=== PATIENT | female | born 1935 | race Caucasian/White ===

== ENCOUNTER 2023-06-03 12:17 | Emergency (ER) | payer MEDICARE, OTHER, SELFPAY ==
[2023-06-03 12:28] VITALS: BP 138/72; PULSE 75; TEMP 36.6; O2SAT 95; BMI 30.9
--- NOTE | 2023-06-03 12:31 | CRLHL7_ITS ---
For Patients: As a result of the Century Cures Act, medical imaging exams and procedure reports are released immediately into your electronic medical record. You may view this report before your referring provider. If you have questions, please contact your health care provider. Indication: Fall Technique: Noncontrast head CT Comparison: No comparison Findings: Generalized parenchymal volume loss. There is no acute intracranial hemorrhage or mass along the anterior falx. There are small partially calcified extra-axial mass measuring up to 8 millimeters on the left. Right frontal and periorbital scalp hematoma. Skull and scalp otherwise unremarkable. Impression: 1. No acute intracranial hemorrhage or mass. 2. Small extra-axial partially calcified 8 millimeter mass along the left falx this is favored to represent a small calcified meningioma. Please note that all CT scans at this facility use dose modulation, iterative reconstruction, and/or weight-based dosing when appropriate to reduce radiation dose to as low as reasonably achievable. Dictated by Vika Dupree MD @ 06/03/2023 2:28:27 PM (Electronically Signed)
--- NOTE | 2023-06-03 12:31 | CRLHL7_ITS ---
For Patients: As a result of the Century Cures Act, medical imaging exams and procedure reports are released immediately into your electronic medical record. You may view this report before your referring provider. If you have questions, please contact your health care provider. Indication: Pain after fall. Pain at the base of the hand on the ulnar side. 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 Remainder of joint spaces are preserved. Irregularity of distal radius may be sequela of old trauma. There is old ulnar styloid fracture. At that ulnar aspect of the base of the hand, an arrow is noted denoting this as the site of pain. There is no fracture identified at that site. Impression: 1. No acute fracture or dislocation. 2. Old distal radial and ulnar styloid fractures. 3. 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 Dictated by Rio Lopez MD @ 06/03/2023 3:01:31 PM (Electronically Signed)
--- NOTE | 2023-06-03 14:16 | ED.GENADULT ---
HPI - General Adult General Date Seen: 06/03/23 Chief complaint: Laceration/Wound Stated complaint: face laceration Time Seen by Provider: 06/03/23 12:19 Source: patient and family Mode of arrival: ambulatory Limitations: no limitations History of Present Illness HPI narrative: Patient is an 87 year old woman here with her daughter for evaluation after a fall. She tripped on an uneven portion of sidewalk and fell, hitting the right side of her face on the ground. She also caught herself partially with her right hand and has some pain in the palm of her hand on the ulnar aspect. There was no loss of consciousness. She denies significant headache. She has a large goose egg over her eyebrow and a laceration over her cheek. She denies any dental trauma or neck pain. She has been ambulatory since, denies any lower extremity pain. No back pain, chest pain abdominal pain or other complaints. She does not take any anticoagulation. Related Data Home Medications Medication Instructions Recorded Confirmed losartan 100 mg tablet 100 mg PO DAILY 06/03/23 06/03/23 Allergies Allergy/AdvReac Type Severity Reaction Status Date / Time codeine Allergy Verified 06/03/23 12:25 Review of Systems Status of ROS: Reports: 6 or more systems reviewed and unremarkable except as noted in History and below [facility] Social History Smoking Status: Never smoker Do you use any of these nicotine containing products: None How often do you have a drink containing alcohol: never AUDIT-C Alcohol total score: 0 Non-prescribed substance use: denies use Exam Narrative: Exam Narrative: Vital signs as noted above. In general, an alert, nontoxic elderly woman. She is alert, conversant. Head: Normocephalic. Large hematoma forming over the right eyebrow. She has a superficial but gaping laceration that is a little over 1 cm over the right cheek. Eyes: Pupils are equal reactive. Extraocular movements are full. Conjunctivae are normal. ENT: Mucous membranes are moist. Laceration is noted above. No bony deformity or tenderness, multiple abrasions noted over the cheek, upper lip, chin. Neck: Supple without lymphadenopathy. Nontender to palpation. Heart: Regular rate and rhythm. No murmur or rub. Lungs: Clear bilaterally. No increased work of breathing, crackles or wheezes. Abdomen: Soft and nontender. No organomegaly. Extremities: Well perfused. No edema. No calf tenderness. Pulses intact. Neurologic: Patient is alert and oriented to person and place. Speech is fluent. Face is symmetric. Moves all extremities equally. Affect: Normal. Skin: Warm and dry. Well perfused. Const: Vital Signs, click to edit/add: Vital Signs - 24 hr 06/03/23 12:28 Temperature 97.8 F Pulse Rate [Pulse Oximeter] 75 Blood Pressure [Ri ght Upper Arm] 138/72 Pulse Oximetry 95 Oxygen Delivery Me thod Room Air Documenting provider has reviewed patient's vital signs: yes Course Course Hospital Course: For the laceration, I recommended that we repair this with sutures. I ordered a CT scan of her head given her age as well as x-rays of the right hand. By my review both of these are negative, formal radiology read are pending at this time. Procedure note: Wound was anesthetized using lidocaine with epinephrine, cleaned and explored, no evidence of foreign body or injury to deeper structures. I closed the wound using 6 0 nylon, a total of 3 superficial simple interrupted sutures were placed. She tolerated this well without immediate complication. Head CT is read as negative by Radiology for acute findings. She has a small likely calcified meningioma. Hand x-ray likewise read as negative for acute findings, severe osteoarthritis. Tetanus was updated. She is eager to go home. Routine wound care, advised use of an ointment on abrasions and laceration, suture removal in 5 to 7 days at her regular clinic, return sooner for signs of infection or severe head injury such as severe headache or vomiting. Vital Signs Vital signs: Initial Vital Signs Temperature 97.8 F 06/03/23 12:28 Temperature Source Temporal Artery Scan 06/03/23 12:28 Pulse Rate 75 06/03/23 12:28 Pulse Rhythm Regular 06/03/23 12:28 Blood Pressure 138/72 06/03/23 12:28 Blood Pressure Mean 94 06/03/23 12:28 Blood Pressure Position Supine 06/03/23 12:28 Pulse Oximetry 95 06/03/23 12:28 Oxygen Delivery Method Room Air 06/03/23 12:28 Vital Signs Temperature 97.8 F 06/03/23 12:28 Pulse Rate 75 06/03/23 12:28 Blood Pressure 138/72 06/03/23 12:28 Pulse Oximetry 95 06/03/23 12:28 Oxygen Delivery Method Room Air 06/03/23 12:28 Temperature 97.8 F 06/03/23 12:28 Pulse Rate 75 06/03/23 12:28 Blood Pressure 138/72 06/03/23 12:28 Pulse Oximetry 95 06/03/23 12:28 Oxygen Delivery Method Room Air 06/03/23 12:28 Discharge Plan Discharge Clinical Impression: Hematoma, Contusion, Facial laceration Patient Disposition: Home w/ Parent or Adult Condition: Improved Instructions: Laceration (DC) Additional Instructions: Routine wound care. Suture removal in your clinic in 5-7 days. Return for signs of infection. Keep an ointment such as Vaseline on the laceration as well as the scrapes on your face, this will help with healing. The bruising above your eyebrow will track down around her eye and possibly even further down your face. You can use ice on this area as needed. Tylenol if needed for pain. Your head CT does not show any acute findings. X-ray of your hand does not show any broken bones. Prescriptions: No Action losartan 100 mg tablet 100 mg PO DAILY Follow Up/Referrals: Provider,Not a Local [Primary Care Provider] - Stand Alone Forms: MyHealth Info Instructions
[2023-06-03] MEDS: TETANUS/DIPHTH/PERTUSSIS 0.5 ML SYRINGE IM (15:02)
== END 2023-06-03 15:18 | disposition home or self-care (01) ==
PROVIDERS: Emergency Provider Emergency Medicine
DX: S01.411A Laceration without foreign body of right cheek and temporomandibular area, initial encounter (principal); S00.11XA Contusion of right eyelid and periocular area, initial encounter; W01.0XXA Fall on same level from slipping, tripping and stumbling without subsequent striking against object, initial encounter
CPT/HCPCS: 12001; 70450; 73130; 90471; 90715; 99283; 99284